=== PATIENT | female | born 1975 | race Caucasian/White ===

== ENCOUNTER → 2017-12-28 | Outpatient (CLI) | payer BC | END | disposition home or self-care (01) | LOC: HKI 13:46 | DX: M17.0 Bilateral primary osteoarthritis of knee (principal) | CPT/HCPCS: 77073 ==

== ENCOUNTER 2018-01-05 05:44 | Inpatient (IN) | payer BC ==
[~2018-01-05 05:44] MED LIST: TRANEXAMIC ACID 1,000 MG in SOD CHLORIDE 0.9% 100 ML IVPB
[2018-01-05] MEDS ORDERED: NEOSTIGMINE 3 MG/3 ML SYRINGE (06:21)
[2018-01-05] MEDS ORDERED: MIDAZOLAM 1 MG/ML 2 ML INJ (06:21)
[2018-01-05] MEDS ORDERED: LIDOCAINE 2% (SDV) 5 ML INJ (06:21)
[2018-01-05] MEDS ORDERED: PROPOFOL 20 ML (06:21)
[2018-01-05] MEDS ORDERED: ROCURONIUM 50 MG INJ (06:21)
[2018-01-05] MEDS ORDERED: GLYCOPYRROLATE 0.4 MG INJ (06:21)
[2018-01-05] MEDS ORDERED: DEXAMETHASONE 4 MG/ML 1 ML INJ (06:21)
[2018-01-05] MEDS ORDERED: FENTAnyl 50 MCG/ML VIAL (06:21)
[2018-01-05] MEDS: LACTATED RINGER'S 1,000 ML IV* ×2 (06:46→08:25)
[2018-01-05] MEDS: LANSOPRAZOLE 30 MG CAP PO (06:47)
[2018-01-05] MEDS: CELECOXIB 200 MG CAP PO (06:47)
[2018-01-05] MEDS: ACETAMINOPHEN 500 MG TAB PO ×3 (06:47→20:00)
[2018-01-05] MEDS: ONDANSETRON 4 MG INJ IV ×3 (06:47→17:32)
[2018-01-05] MEDS: CEFAZOLIN 2 GM/50 ML (PMX) 50 ML IVPB (07:00)
[2018-01-05] MEDS ORDERED: CEFAZOLIN 1 GM INJ ×2 (07:00→08:03)
[2018-01-05] MEDS: TRANEXAMIC ACID 1,000 MG in SOD CHLORIDE 0.9% 100 ML IVPB ×2 (08:00→08:25)
[2018-01-05] MEDS: POLYMYXIN/BACITRACIN 1L IRRIG (08:34)
[2018-01-05] MEDS ORDERED: MAGNESIUM HYDROXIDE 30ML CUP PO (11:30)
[2018-01-05] MEDS ORDERED: SENNA/DOCUSATE NA (8.6MG/50MG) TAB PO (11:30)
[2018-01-05] MEDS ORDERED: oxyCODONE 5 MG TAB PO (11:30)
[2018-01-05] MEDS ORDERED: DIPHENHYDRAMINE 50 MG INJ IV (11:30)
[2018-01-05] MEDS ORDERED: NA PHOSPHATE/BIPHOS 133 ML ENEMA PR (11:30)
[2018-01-05] MEDS ORDERED: ACETAMINOPHEN 1000MG/100ML IV 100 ML IVPB (11:30)
[2018-01-05] MEDS ORDERED: ZOLPIDEM 5 MG TAB PO (11:30)
[2018-01-05] MEDS ORDERED: NALOXONE (0.4 MG/ML) INJ IV (11:30)
[2018-01-05] MEDS ORDERED: BISACODYL 10 MG SUPP PR (11:30)
[2018-01-05] MEDS: ASPIRIN 81 MG TAB PO ×2 (12:25→20:08)
[2018-01-05] MEDS: CEFAZOLIN 1 GM/50 ML (PMX) 50 ML IVPB ×2 (12:26→20:08)
[2018-01-05] MEDS: DOCUSATE SODIUM 100 MG CAP PO (12:26)
[2018-01-05] MEDS ORDERED: KETOROLAC 30 MG INJ IV (12:30)
[2018-01-05] MEDS ORDERED: ONDANSETRON 4 MG INJ IV (12:30)
[2018-01-05] MEDS ORDERED: morphine (1 MG/ML) 10ML SYRINGE IV ×3 (12:30)
[2018-01-05] MEDS ORDERED: LABETALOL HCL 20MG INJ IV (12:30)
[2018-01-05] MEDS ORDERED: HYDROmorphONE 1 MG/5 ML IV SYRINGE IV ×2 (12:30→12:34)
[2018-01-05] MEDS ORDERED: FENTAnyl 50 MCG/ML VIAL IV ×2 (12:30)
[2018-01-05] MEDS ORDERED: hydrALAzine 20 MG INJ IV (12:30)
[2018-01-05] MEDS: HYDROmorphONE 1 MG/5 ML IV SYRINGE IV ×3 (12:58→13:04)
[2018-01-05] MEDS: FENTAnyl 50 MCG/ML VIAL IV (13:05)
[2018-01-05] MEDS: SOD CHLORIDE 0.9% 1,000 ML IV (14:21)
[2018-01-05] MEDS: KETOROLAC 15 MG INJ IV ×2 (14:55→20:09)
[2018-01-05] MEDS: oxyCODONE 5 MG TAB PO ×3 (16:57→23:13)
[2018-01-05] MEDS: HYDROXYCHLOROQUINE 200 MG TAB PO (20:02)
[2018-01-05] MEDS: GABAPENTIN 300 MG CAP PO (20:02)
[2018-01-05] MEDS: SULFASALAZINE (EC) 500 MG TAB PO (20:03)
[2018-01-05] MEDS: CELECOXIB 100 MG CAP PO (20:03)
[2018-01-06] MEDS: SOD CHLORIDE 0.9% 1,000 ML IV ×2 (00:26→12:15)
[2018-01-06] MEDS: ONDANSETRON 4 MG INJ IV ×2 (00:26→05:48)
[2018-01-06] MEDS: oxyCODONE 5 MG TAB PO ×6 (03:14→19:36)
[2018-01-06] MEDS: CEFAZOLIN 1 GM/50 ML (PMX) 50 ML IVPB (03:15)
[2018-01-06] MEDS: ACETAMINOPHEN 500 MG TAB PO (03:19)
[2018-01-06 05:07] LABS: ADD MAN DIFF? NO
[2018-01-06 05:13] LABS: WHITE BLOOD COUNT 11.9 10^3/ul (4.8-10.8)
[2018-01-06 05:13] LABS: BASOPHIL # 0.1 10^3/ul (0.0-0.1); BASOPHILS % 0.4 % (0.0-2.0); EOSINOPHILS % 0.1 % (0.0-7.0); HEMATOCRIT 26.2 % (37.0-47.0); HEMOGLOBIN 8.5 g/dl (12.0-16.0); LYMPHOCYTES # 3.1 10^3/ul (0.8-2.9); MEAN CORPUSCULAR HEMOGLOBIN 30.7 pg (29.0-33.0); MEAN CORPUSCULAR HGB CONC 32.4 g/dl (32.0-37.0); MEAN CORPUSCULAR VOLUME 94.6 fl (82.0-101.0); MEAN PLATELET VOLUME 10.1 fl (7.4-10.4); MONOCYTE # 1.3 10^3/ul (0.3-0.9); MONOCYTES % 10.5 % (0.0-11.0); NEUTROPHIL # 7.4 10^3/ul (1.6-7.5); NEUTROPHILS % 62.5 % (39.0-77.0); PLATELET COUNT 371 10^3/UL (140-415); RED BLOOD COUNT 2.77 10^6/ul (4.20-5.40); RED CELL DISTRIBUTION WIDTH 14.1 % (11.5-14.5)
[2018-01-06 05:38] LABS: ANION GAP 5 (5-13); BLOOD UREA NITROGEN 5 mg/dl (7-20); CALCIUM 7.8 mg/dl (8.4-10.2); CARBON DIOXIDE 28 mmol/L (21-31); CHLORIDE 103 mmol/L (97-110); CREATININE 0.51 mg/dl (0.44-1.00); Estimated GFR > 60 mL/min (>60); GLUCOSE 107 mg/dl (70-220); POTASSIUM 3.8 mmol/L (3.5-5.1); SODIUM 136 mmol/L (135-144)
[2018-01-06] MEDS: BETHANECHOL 25 MG TAB PO (05:48)
[2018-01-06 07:48] LABS: ADD UMIC YES; UR ASCORBIC ACID NEGATIVE (NEGATIVE); UR BILIRUBIN (Dip) NEGATIVE (NEGATIVE); UR BLOOD (Dip) 1+ mg/dL (NEGATIVE); UR CLARITY CLEAR (CLEAR); UR COLOR YELLOW (YELLOW); UR GLUCOSE (Dip) NEGATIVE (NEGATIVE); UR KETONES (Dip) TRACE mg/dL (NEGATIVE); UR LEUKOCYTE ESTERASE (Dip) NEGATIVE Leu/ul (NEGATIVE); UR MUCUS FEW /HPF (NONE SEEN); UR NITRITE (Dip) NEGATIVE (NEGATIVE); UR RBC 46 /HPF (0-5); UR SPECIFIC GRAVITY (Dip) 1.019 (1.003-1.030); UR TOTAL PROTEIN (Dip) NEGATIVE (NEGATIVE); UR UROBILINOGEN (Dip) NEGATIVE (NEGATIVE); UR WBC 3 /HPF (0-5)
[2018-01-06] MEDS: ASPIRIN 81 MG TAB PO (08:48)
[2018-01-06] MEDS: SULFASALAZINE (EC) 500 MG TAB PO ×2 (08:49→12:30)
[2018-01-06] MEDS: HYDROXYCHLOROQUINE 200 MG TAB PO (08:49)
[2018-01-06] MEDS: CELECOXIB 100 MG CAP PO (08:49)
[2018-01-06] MEDS: DOCUSATE SODIUM 100 MG CAP PO (08:49)
[2018-01-06] MEDS: FOLIC ACID 1 MG TAB PO (08:49)
[2018-01-06] MEDS: FERROUS FUMARATE (SR) TAB PO (08:50)
[2018-01-06] MEDS: AMLODIPINE 5 MG TAB PO (08:50)
[2018-01-06] MEDS: BENAZEPRIL 40 MG TAB PO (08:51)
[2018-01-06] MEDS: KETOROLAC 15 MG INJ IV (10:43)
[2018-01-07] MEDS ORDERED: PANTOPRAZOLE (EC) 40 MG TAB PO (06:00)
== END 2018-01-06 20:25 | disposition home health service (06) | DRG 470 ==
LOC: REC 05:44 → MS1 13:11
PROC: 0SRC0J9 Replacement of Right Knee Joint with Synthetic Substitute, Cemented, Open Approach (ICD-10-PCS; principal; 2018-01-05 07:30)
PROC: XR2G021 Monitoring of Right Knee Joint using Intraoperative Knee Replacement Sensor, Open Approach, New Technology Group 1 (ICD-10-PCS; 2018-01-05 07:30)
DX: M06.861 Other specified rheumatoid arthritis, right knee (principal); I10 Essential (primary) hypertension
CPT/HCPCS: 73560; 80048; 81001; 85025; 87086; 88304; 88311; 90686; 97116; 97161; 97167; 97530

== ENCOUNTER → 2018-01-18 | Outpatient (CLI) | payer BC | END | disposition home or self-care (01) | LOC: HKI 11:35 | DX: Z09 Encounter for follow-up examination after completed treatment for conditions other than malignant neoplasm (principal); Z96.651 Presence of right artificial knee joint | CPT/HCPCS: 73560; 73560-RT ==

== ENCOUNTER → 2018-01-25 | Outpatient (CLI) | payer BC | END | disposition home or self-care (01) | LOC: HKI 14:02 | DX: M06.9 Rheumatoid arthritis, unspecified (principal); Z96.651 Presence of right artificial knee joint ==

== ENCOUNTER → 2018-02-19 | Outpatient (CLI) | payer BC | END | disposition home or self-care (01) | LOC: HKI 14:11 | DX: Z47.1 Aftercare following joint replacement surgery (principal); M06.9 Rheumatoid arthritis, unspecified; Z96.651 Presence of right artificial knee joint | CPT/HCPCS: 73562; 73562-RT ==

== ENCOUNTER → 2018-04-01 | Outpatient (CLI) | payer BC | END | disposition home or self-care (01) | LOC: HKI 09:46 | DX: M06.9 Rheumatoid arthritis, unspecified (principal); Z96.651 Presence of right artificial knee joint | CPT/HCPCS: 73564 ==

== ENCOUNTER → 2018-08-02 | Outpatient (CLI) | payer BC | END | disposition home or self-care (01) | LOC: HKI 14:36 | DX: M06.862 Other specified rheumatoid arthritis, left knee (principal); Z96.651 Presence of right artificial knee joint | CPT/HCPCS: 73562; 73562-50 ==